=== PATIENT | female | born 1970 | race African-American/Black ===

== ENCOUNTER 2023-01-09 10:39 | Emergency (ER) | payer SELFPAY ==
[2023-01-09] MEDS ORDERED: Lidocaine 1% (PF) 30 ML VIAL ONE (11:30)
[2023-01-09] MEDS ORDERED: HYDROcodone/Acetaminophen 5/325 mg Tablet ONE (11:30)
== END 2023-01-09 12:36 | disposition home or self-care (01) ==
LOC: CSHERS 10:39
DX: L02.211 Cutaneous abscess of abdominal wall (principal)
CPT/HCPCS: 10060; 87070; 87205; J2001